=== PATIENT | female | born 1940 | race Caucasian/White ===

== ENCOUNTER → 2017-06-23 | Outpatient (CLI) | payer OTHER, MEDICARE ==
[2017-06-23 09:31] LABS: BASO % 1.1 %; BASO ABS # 0.04 K/uL (0-0.2); COMPLETE YES; EOS % 2.7 %; HEMATOCRIT 40.1 % (37-47); HEMOGLOBIN 13.4 g/dL (12.0-16.0); IG# 0.01 K/uL (0.00-0.02); IG% 0.3 %; LYMPH % 36.9 %; LYMPH ABS # 1.37 K/uL (1.2-3.4); MEAN CELL VOLUME 97.1 fL (80-100); MEAN CORPUSCULAR HEMOGLOBIN 32.4 pg (25-34); MEAN CORPUSCULAR HGB CONC 33.4 g/dl (32-36); MEAN PLATELET VOLUME 10.5 fL (7.4-10.4); MONO ABS # 0.37 K/uL (0.11-0.59); NEUT ABS # 1.82 K/uL (1.4-6.5); PLATELET COUNT 242 K/uL (130-400); RED BLOOD COUNT 4.13 M/uL (4.2-5.4); RED CELL DISTRIBUTION WIDTH CV 13.2 % (11.5-14.5); RED CELL DISTRIBUTION WIDTH SD 46.7 fL (36.4-46.3); WHITE BLOOD COUNT 3.71 K/uL (4.8-10.8)
[2017-06-23 09:48] LABS: GLUCOSE 79 mg/dl (70-99)
[2017-06-23 09:48] LABS: ALBUMIN 3.7 gm/dl (3.4-5.0); ALT/SGPT 37 U/L (12-78); AST/SGOT 36 U/L (15-37); BLOOD UREA NITROGEN 22 mg/dl (7-18); BUN/CREATININE RATIO 25.6 (10-20); CALCIUM 8.8 mg/dl (8.5-10.1); CARBON DIOXIDE 30 mmol/L (21-32); CHLORIDE 103 mmol/L (98-107); CREATININE 0.88 mg/dl (0.60-1.20); EstGFR CKD-E AfrAm 74.5; EstGFR CKD-E NON AfrAm 64.3; POTASSIUM 4.2 mmol/L (3.5-5.1); SODIUM 137 mmol/L (136-145); TOTAL PROTEIN 7.5 gm/dl (6.4-8.2)
[2017-06-23 10:01] LABS: ALKALINE PHOSPHATASE 81 U/L (45-117); CHOLESTEROL 210 mg/dl (0-200); CHOLESTEROL/HDL RATIO 2.7; HDL CHOLESTEROL 77 mg/dl; LDL CHOLESTEROL CALCULATED 120 mg/dl; TRIGLYCERIDES 65 mg/dl (0-150); VERY LOW DENSITY LIPOPROT CALC 13 mg/dl
[2017-06-23 10:16] LABS: VITAMIN B12** 799 pg/mL (211-911)
== END | disposition home or self-care (01) ==
LOC: C.LAB1850 07:59
DX: Z00.00 Encounter for general adult medical examination without abnormal findings (principal); G30.0 Alzheimer's disease with early onset; R35.0 Frequency of micturition; R41.89 Other symptoms and signs involving cognitive functions and awareness

== ENCOUNTER → 2017-07-04 | Outpatient (CLI) | payer OTHER, MEDICARE | END | disposition home or self-care (01) | LOC: C.LABSPEC 16:52 | PROVIDERS: ATTEND Podiatrist Primary Podiatric Medicine | DX: B35.1 Tinea unguium (principal) ==

== ENCOUNTER → 2017-10-19 | Outpatient (CLI) | payer OTHER, MEDICARE ==
[2017-10-19 17:06] LABS: BASO % 0.5 %; BASO ABS # 0.02 K/uL (0-0.2); EOS % 1.2 %; EOS ABS # 0.05 K/uL (0-0.5); HEMATOCRIT 37.9 % (37-47); HEMOGLOBIN 12.6 g/dL (12.0-16.0); IG# 0.01 K/uL (0.00-0.02); LYMPH % 26.6 %; LYMPH ABS # 1.07 K/uL (1.2-3.4); MEAN CELL VOLUME 96.4 fL (80-100); MEAN CORPUSCULAR HEMOGLOBIN 32.1 pg (25-34); MEAN CORPUSCULAR HGB CONC 33.2 g/dl (32-36); MEAN PLATELET VOLUME 10.2 fL (7.4-10.4); MONO ABS # 0.32 K/uL (0.11-0.59); NEUT % 63.5 %; NEUT ABS # 2.55 K/uL (1.4-6.5); PLATELET COUNT 258 K/uL (130-400); RED CELL DISTRIBUTION WIDTH CV 13.6 % (11.5-14.5); RED CELL DISTRIBUTION WIDTH SD 48.6 fL (36.4-46.3); WHITE BLOOD COUNT 4.02 K/uL (4.8-10.8)
[2017-10-19 17:22] LABS: ALBUMIN 3.6 gm/dl (3.4-5.0)
== END | disposition home or self-care (01) ==
LOC: C.LABBFT 13:40
PROVIDERS: ATTEND Podiatrist Primary Podiatric Medicine
DX: M81.0 Age-related osteoporosis without current pathological fracture (principal); Z79.899 Other long term (current) drug therapy

== ENCOUNTER → 2018-01-02 | Outpatient (CLI) | payer OTHER, MEDICARE ==
--- NOTE | 2018-01-02 15:20 | MAMMOGRAPHY REPORT ---
BILATERAL DIGITAL SCREENING MAMMOGRAM TOMOSYNTHESIS WITH CAD: 01/02/2018 CLINICAL HISTORY: Routine screening. Patient has no complaints. TECHNIQUE: The study was acquired using full field digital technology and interpreted from soft copy. Breast tomosynthesis in addition to standard 2D mammography was performed. Current study was also ev aluated with a Computer Aided Detection (CAD) system. COMPARISON: Prior mammograms from [facility] dated 10/16/2008, 01/14/2010, 03/08/2011, , 10/15/2013, 05/18/2015, 12/15/2016. BREAST COMPOSITION: The tissue of both breasts is heterogeneously dense, which may obscure small mass es. FINDINGS: There are mild vascular calcifications in the breasts. No significant interval change comp aring to prior mammograms. No suspicious mass, architectural distortion or cluster of microcalcificat ions is seen. IMPRESSION: ACR BI-RADS CATEGORY 1: NEGATIVE There is no mammographic evidence of malignancy. A 1 year screening mammogram is recommended.( 019) The patient will receive written notification of the results. Some breast cancers are not detected with mammography. A negative mammographic report should not kenton y biopsy if a clinically suggestive mass is present. Rachele Dias M.D. ay/:01/02/2018 12:47:23 Waste Collection Driver: RT Chasity(Sadie)(M), [facility] letter sent: Normal 1/2 BI-RADS Code: ACR BI-RADS Category 1: Negative
== END | disposition home or self-care (01) ==
LOC: C.MAMM 11:27
PROVIDERS: ATTEND Internal Medicine
DX: Z12.31 Encounter for screening mammogram for malignant neoplasm of breast (principal)

== ENCOUNTER 2021-08-31 08:21 | Observation (INO) ==
--- NOTE | 2021-08-02 13:51 | PAT Medication Instructions ---
Medication Instructions Date of Service August 02, 2021 Home Medications Medication Instructions Recorded calcium carbonate 600 mg-vitamin 1 cap PO BID #60 cap 03/22/19 D3 12.5 mcg (500 unit) capsule (Calcium 600 with Vitamin D3) triamcinolone acetonide 0.1 % 1 applic TOPICAL BID PRN #15 g 05/08/20 topical ointment sertraline 100 mg tablet 100 mg PO QAM #90 tab 01/19/21 calcium carbonate 600 mg-vitamin D3 12.5 mcg (500 unit) capsule (Calcium 600 with Vitamin D3) 1 cap PO BID glucosamine 500 xw-vsytpsljv-jedhwjec comp 400 mg-D3 667 unit-C-Mn cap 1 cap PO QPM multivitamin 1 tab PO QAM omega-3 fatty acids 1,000 mg capsule (Fish Oil Concentrate) 1,000 mg PO QAM vitamin E 200 unit capsule 200 units PO QAM triamcinolone acetonide 0.1 % topical ointment 1 applic TOPICAL BID PRN solifenacin 10 mg tablet (Vesicare) 10 mg PO QPM sertraline 100 mg tablet 100 mg PO QAM cholecalciferol (vitamin D3) 25 mcg (1,000 unit) capsule 25 mcg PO QPM ibuprofen 200 mg capsule 200 - 400 mg PO Q6H PRN omeprazole 20 mg tablet,delayed release 20 mg PO QAM ASK your surgeon for instructions ibuprofen 200 mg capsule 200 - 400 mg PO Q6H PRN STOP taking 2 weeks before surgery glucosamine 500 ax-vywpfiezk-jfecutit comp 400 mg-D3 667 unit-C-Mn cap 1 cap PO QPM omega-3 fatty acids 1,000 mg capsule (Fish Oil Concentrate) 1,000 mg PO QAM vitamin E 200 unit capsule 200 units PO QAM STOP taking 24 hours before surgery triamcinolone acetonide 0.1 % topical ointment 1 applic TOPICAL BID PRN DO NOT take the morning of surgery calcium carbonate 600 mg-vitamin D3 12.5 mcg (500 unit) capsule (Calcium 600 with Vitamin D3) 1 cap PO BID multivitamin 1 tab PO QAM Take morning of surgery With a small sip of water, OTHERWISE NOTHING TO EAT OR DRINK AFTER MIDNIGHT: sertraline 100 mg tablet 100 mg PO QAM omeprazole 20 mg tablet,delayed release 20 mg PO QAM Take evening before surgery calcium carbonate 600 mg-vitamin D3 12.5 mcg (500 unit) capsule (Calcium 600 with Vitamin D3) 1 cap PO BID solifenacin 10 mg tablet (Vesicare) 10 mg PO QPM cholecalciferol (vitamin D3) 25 mcg (1,000 unit) capsule 25 mcg PO QPM Other Notes If you have any questions please call us at [phone] or [phone] or [phone] or [phone]
--- NOTE | 2021-08-04 09:54 | Anesthesiology Consultation ---
Date of Service August 04, 2021 Assessment & Plan (1) Encounter for pre-operative examination: - septal infarct on EKG, pt denies any cardiac history including known history of IA. Case discussed with Dr. Powell who advised cardiology pre-op evaluation. Form completed, awaiting cardiology pre-op evaluation and clearance. - Outpatient joint pathway: Patient is listed as outpatient joint. She expresses concern with going home same day and would prefer to stay overnight. I advised I will relay this to the surgeon's office. She states had originally requested outpatient joint due to concern for pet care and states will now be boarding dog and having someone care for her cat. Joycelyn at surgeon's office advised of plan to stay overnight and states will change booking. Additional considerations include patient age, dementia and residing in independent living with reported plan to hire someone to stay her from wellness committee which would need further reviewed with an anesthesiologist if patient preference were to change. - vascular dementia: will attempt to obtain most recent [facility] neuro note. Pt expressed understanding there can be associated worsening of dementia, expresses has remained stable through previous procedures. - NPO: She inquired if should consume a particularly large meal evening before surgery. I advised we do not advise this specifically and cautioned her on this given potential to exacerbate GERD and potential complications of acute GERD exacerbation in setting of planned surgery and aspiration concern. She verbalized understanding and denied additional questions or concerns, states will eat as usual. - COVID screening: Per assessment on 08/04/2021: Travel screen negative, no known COVID-19 positive contacts or current COVID-19 related symptoms in past 2 weeks. Patient vaccinated. Surgeon arranging preop COVID testing, scheduled 08/27/2021. Awaiting results. Chart Review Chart Review: Pending: Refer to Additional Notes / Consult section and Patient seen in Pre Admission Testing Teaching & Discussion Pre-Anesthesia Teaching/Discussion Notes: Instructed NPO after midnight before surgery, except medications with 15 cc of water. Medication instructions provided according to the PAT guidelines. History Surgery Operation Date: 08/31/21 08:55 Proposed Procedures p Right Anterior Total Hip Arthroplasty - Juno Willett, Height/Weight Height: 5 ft 1.25 in Weight: 47.6 kg Allergies Allergy/AdvReac Type Severity Reaction Status Date / Time No Known Allergies Allergy Verified 08/02/21 09:09 Medications Home Medications Medication Instructions Recorded Confirmed Last Taken calcium carbonate 600 mg-vitamin 1 cap PO BID #60 cap 03/22/19 08/02/21 01/03/21 16:00 D3 12.5 mcg (500 unit) capsule (Calcium 600 with Vitamin D3) glucosamine 500 1 cap PO QPM 04/16/19 08/02/21 01/03/21 16:00 nr-bxnpxqqvq-fmzgxree comp 400 mg-D3 667 unit-C-Mn cap multivitamin 1 tab PO QAM 04/16/19 08/02/21 01/03/21 08:00 omega-3 fatty acids 1,000 mg 1,000 mg PO QAM 04/16/19 08/02/21 01/03/21 16:00 capsule (Fish Oil Concentrate) vitamin E 200 unit capsule 200 units PO QAM 04/16/19 08/02/21 01/03/21 08:00 triamcinolone acetonide 0.1 % 1 applic TOPICAL BID PRN #15 g 05/08/20 08/02/21 Unknown topical ointment solifenacin 10 mg tablet (Vesicare) 10 mg PO QPM 12/16/20 08/02/21 01/03/21 16:00 sertraline 100 mg tablet 100 mg PO QAM #90 tab 01/19/21 08/02/21 Unknown cholecalciferol (vitamin D3) 25 25 mcg PO QPM 05/13/21 08/02/21 Unknown mcg (1,000 unit) capsule ibuprofen 200 mg capsule 200 - 400 mg PO Q6H PRN 08/02/21 08/02/21 Unknown omeprazole 20 mg tablet,delayed 20 mg PO QAM 08/02/21 08/02/21 Unknown release Past Medical History Medical History (Updated 08/04/21 @ 11:46 by Chloé Wilburn PA-C) Anxiety Asthma mild-NO INHALERS Cardiac murmur "BENIGN"-PER PT-NO CARDIOLOGY-last echo > 15 yrs ago per pt-no available report Depression Gastritis HX ACID REFLUX, s/p dilation-UNDER CONTROL Osteoarthritis of left hip Osteoarthritis of right hip Osteopenia Overactive bladder Vascular dementia follows with [facility] Patient denies h/o stroke, seizures, heart attack, heart failure, DM, HTN, blood clots or blood transfusions. Exercise / Class Metabolic Activity II 4-5 Yardwork/Stairs/Walk up hill (denies CP or SOB with 1 FOS when occ does stairs, more often remains on flat surfaces due to orthopedic limitations/first floor residence) Past Family History Family History Father Prostate cancer Myocardial infarction Grandmother (Paternal) Family history of diabetes mellitus Denies family history of Ovarian cancer Breast cancer Colorectal cancer Past Surgical History Surgical History (Updated 08/04/21 @ 10:31 by Chloé Wilburn PA-C) H/O laminectomy anterior, C4-C6 History of cataract surgery R/L History of colonoscopy History of esophagogastroduodenoscopy (EGD) with dilation History of tonsillectomy Past Anesthesia History No Hx of Anesthesia Complications and Other (mother suspected to have worsened dementia after surgery) History of PONV No Hx of PONV and No Hx of Motion Sickness Social History Smoking Status: Former smoker tobacco type: cigarettes Do You Dip or Chew Tobacco: No Smoking End Date: QUIT AGE 25 Hx Alcohol Use: Yes alcohol intake frequency: holidays/special occasions only Hx Substance Use: No substance use type: does not use Review of Systems Patient denies chest pain, shortness of breath, dyspnea on exertion, snoring, witnessed apneas, fever, chills, cough, wheezing, or palpitations. Physical Exam Vital Signs Vitals BP 138/80 P 62 TEMP 98.8 SP02 96% on RA RESP 17 Physical Full cervical extension range of motion without pain Full TMJ range of motion TMD 3 finger breaths Mallampati Score 2 Dentition: intact, multiple caps/crowns throughout-none in front per pt; denies missing, loose or chipped teeth, implants or bridges Lungs: normal respiratory effort. Clear throughout to auscultation, no adventitious breath sounds Cardiac: regular rate and rhythm, no murmurs noted Carotid arteries: negative bruit bilat Extremities: no distal extremity edema Lab Results Anesthesia Preop Results Results Anesthesia Widget: WBC 4.63 K/uL (4.8-10.8) L 08/04/21 Hgb 13.2 g/dL (12.0-16.0) 08/04/21 Hct 39.4 % (37-47) 08/04/21 Plt 263 K/uL (130-400) 08/04/21 Na 138 mmol/L (136-145) 08/04/21 K 4.3 mmol/L (3.5-5.1) 08/04/21 Cl 104 mmol/L (98-107) 08/04/21 CO2 28 mmol/L (21-32) 08/04/21 BUN 19 mg/dl (6-23) 08/04/21 Creat 0.93 mg/dl (0.6-1.2) 08/04/21 Glucose Level 82 mg/dl (70-99(Fasting)) 08/04/21 PT 10.9 Seconds (9.0-12.0) 08/04/21 PTT 25.6 Seconds (21.0-31.0) 08/04/21 INR 1.0 (0.9-1.1) 08/04/21 Blood Type B Positive 08/04/21 Antibody Screen NEGATIVE 08/04/21 Testing Electrocardiogram Date: 08/04/21 NSR, rate 61 bpm Septal infarct Chest X-Ray Date: 08/04/21 FINDINGS: No lines and tubes are seen. The cardiomediastinal silhouette is normal. No airspace disease seen. Interstitial thickening is seen. No evidence of pleural effusion or pneumothorax. IMPRESSION: No acute chest disease.
--- NOTE | 2021-08-26 14:03 | History & Physical Report ---
Date of Service August 26, 2021 Assessment & Plan (1) Osteoarthritis of right hip: We will proceed with a right anterior total arthroplasty. Postoperatively she will be started on aspirin for DVT prophylaxis and kept overnight in the hospital for postoperative medical management. She plans to use energy physical therapy upon discharge. History of Present Illness Chief Complaint: Osteoarthritis of the right hip. Primary Care Provider: Majo Guerrero MD Marlen is a pleasant 81-year-old female who is been dealing with chronic worsening right hip and groin pain. X-rays and clinical examination have been diagnostic for advanced osteoarthritis of the right hip. After failing conservative treatment, she has elected to proceed with a right anterior total hip arthroplasty. Allergies Allergy/AdvReac Type Severity Reaction Status Date / Time No Known Allergies Allergy Verified 08/25/21 08:46 Home Medications Medication Instructions Recorded Confirmed Type calcium carbonate 600 mg-vitamin 1 cap PO BID #60 cap 03/22/19 08/25/21 Rx D3 12.5 mcg (500 unit) capsule (Calcium 600 with Vitamin D3) glucosamine 500 1 cap PO QPM 04/16/19 08/25/21 History oi-qninicibn-wyytvjvg comp 400 mg-D3 667 unit-C-Mn cap multivitamin 1 tab PO QAM 04/16/19 08/25/21 History omega-3 fatty acids 1,000 mg 1,000 mg PO QAM 04/16/19 08/25/21 History capsule (Fish Oil Concentrate) vitamin E 200 unit capsule 200 units PO QAM 04/16/19 08/25/21 History triamcinolone acetonide 0.1 % 1 applic TOPICAL BID PRN #15 g 05/08/20 08/25/21 Rx topical ointment solifenacin 10 mg tablet (Vesicare) 10 mg PO QPM 12/16/20 08/25/21 History sertraline 100 mg tablet 100 mg PO QAM #90 tab 01/19/21 08/25/21 Rx cholecalciferol (vitamin D3) 25 25 mcg PO QPM 05/13/21 08/25/21 History mcg (1,000 unit) capsule ibuprofen 200 mg capsule 200 - 400 mg PO Q6H PRN 08/02/21 08/25/21 History omeprazole 20 mg tablet,delayed 20 mg PO QAM 08/02/21 08/25/21 History release Past Med/Surg History Medical History Anxiety Asthma mild-NO INHALERS Cardiac murmur "BENIGN"-PER PT-NO CARDIOLOGY-last echo > 15 yrs ago per pt-no available report Depression Gastritis HX ACID REFLUX, s/p dilation-UNDER CONTROL Osteoarthritis of left hip Osteoarthritis of right hip Osteopenia Overactive bladder Vascular dementia follows with [facility] Surgical History H/O laminectomy anterior, C4-C6 History of cataract surgery R/L History of colonoscopy History of esophagogastroduodenoscopy (EGD) with dilation History of tonsillectomy Family History Father Prostate cancer Myocardial infarction Grandmother (Paternal) Family history of diabetes mellitus Denies family history of Ovarian cancer Breast cancer Colorectal cancer Social History Smoking Status: Never smoker Age Started Using Tobacco: 20; Age Quit Using Tobacco: 25; Years Smoked: 7; Second Hand Exposure: Yes (FATHER SMOKED); Hx Alcohol Use: Yes Hx Substance Use: No Preferred Language: Frisian Communication Ability: Effective Hearing Ability: Use of Hearing Aid Inspector Scales Required: No Beliefs That Will Affect Care: None marital status: / Current Living Situation: Alone Current Living Situation Comment: lives at the [facility] current occupational status: retired Feels Safe at Home: Yes Childhood Exposure to Second-Hand Smoke: Yes caffeine: Yes (Hot tea) Dental Care, Regularly: Yes Physical Activity Frequency: Daily Seatbelt Use: always Sunscreen Use: Yes Assistive Devices: Cane, Glasses and Hearing Aid - Bilateral Review of Systems All systems reviewed & are unremarkable except as noted in HPI & below. Physical Exam On physical examination of the right hip, she ambulates with a cane. She has decreased range of motion and pain with forced internal and external rotation. Constitutional WD/WN, vitals as above Eyes PERRL, conjunctivae normal, anicteric sclerae ENMT external ear and nose normal, oropharynx normal Neck trachea midline, no thyromegaly Respiratory normal respiratory effort Cardiovascular RRR, no murmur, no edema Gastrointestinal (Abdomen) normal bowel sounds, soft, nontender, no hepatosplenomegaly Psychiatric A+Ox3, euthymic affect Results & Data Results & Data Laboratory Results . Diagnostic Findings X-rays of the right hip show advanced osteoarthritis with joint space narrowing, osteophyte formation, and sjmq-hh-uvbp articulation. PG Care Time/CCT Total # of Minutes Spent Total Time Spent with Patient: Total time spent is greater than 50% in coordination of care (as documented) at patient's floor/unit and/or counseling patient: Coding Level of Care Code None Diagnoses Osteoarthritis of right hip M16.11
--- NOTE | 2021-08-31 08:16 | History & Physical Bridge Note ---
Date of Service August 31, 2021 History & Physical Bridge Note I have examined the patient, reviewed the History & Physical and in the interval since the performance of the History & Physical I have noted the following changes of clinical significance: no changes noted
[~2021-08-31 08:21] MED LIST: ACETAMINOPHEN 500 MG TAB PO SCH; BUPIVACAINE 0.5 % 5 MG/1 ML PF 10ML VIAL ONE; FAMOTIDINE 20 MG TAB PO SCH; GABAPENTIN 300 MG CAP PO SCH; Ketorolac (*for OR use only*) 30 MG, dexAMETHasone 4 MG, KETAMINE HCL (**OR use only) 1... INFIL SCH; LR 500ML BOLUS, THEN 15ML/HR IV SCH; LR 60ML/HR IV SCH; TRANEXAMIC ACID 1,000 MG **IV Intra-op IV SCH; TRANEXAMIC ACID 1,000 MG **IV Pre-op IV SCH; ceFAZolin 1000MG 1,000 MG/7.5 ML SYR IV SCH; dexAMETHasone 4 MG TAB PO SCH
[2021-08-31] MEDS ORDERED: ePHEDrine sulfate 50 MG/ML AMP IV PRN (10:17)
[2021-08-31] MEDS ORDERED: ATROPINE SULFATE 0.1 MG/ML 10ML SYR IV PRN (10:17)
[2021-08-31] MEDS ORDERED: ONDANSETRON INJ 2 MG/ML 2 ML VIAL IV PRN ×2 (10:17→13:51)
[2021-08-31] MEDS ORDERED: fentaNYL citrate 100 MCG/2 ML VIAL IV PRN (10:17)
[2021-08-31] MEDS ORDERED: PROPOFOL IV EMULSION 10 MG/ML 20 ML VIAL IV ONE (10:19)
[2021-08-31] MEDS ORDERED: LIDOCAINE 2% 2 ML VIAL/AMP(20MG/ML) INFIL ONE (10:19)
[2021-08-31] MEDS ORDERED: MIDAZOLAM HCL 1 MG/ML 2ML VIAL ONE (10:29)
[2021-08-31] MEDS ORDERED: ORTHO JOINT ANESTHETIC ONE (10:29)
--- NOTE | 2021-08-31 11:49 | Operative Report ---
PG Post Operative Report Pre & Post Diagnosis Operation Date: 08/31/21 10:40 Pre-Op Diagnosis: Right Hip Osteoarthritis Post-Op Diagnosis: Right Hip Osteoarthritis I identified the patient and participated in the time-out.: Yes Procedure Operation Date: 08/31/21 10:40 Actual Procedures p Right Anterior Total Hip Arthroplasty(Right) - Juno Willett DO Surgeon Juno Willett, Outside Deliverer Juno Bajwa PAC Estimated Blood Loss 200 Findings Consistent with Post-Op Diagnosis Specimens Right femoral head Complications none Disposition Disposition: Recovery Room Indications Marlen is a pleasant 81-year-old female who is been doing with chronic increasing right hip and groin pain. X-rays and clinical examination are diagnostic for advanced arthritis of the right hip. After failing conservative treatment, she elected proceed with a right anterior total hip arthroplasty. Description of Procedure Implants used I used a ZimmerBiomet total hip arthroplasty system with a size 2 standard offset Avenir Complete stem, a 50 mm G7 cup with a 25mm screw, an E1 polyethylene liner, a 36 mm ceramic head with a 0 neck. Marlen arrived at the hospital for the above procedure. She was seen in the preoperative holding area and the operative extremity was identified and signed. She was given a spinal anesthetic, a preoperative antibiotic, and TXA. She was then taken back to the operating room and laid on the table in the supine position. She was given basic sedation. The operative leg was secured to a Puristst leg positioner. The hip was then prepped and draped in sterile fashion. A timeout was done and the patient and the operative extremity was properly identified. An anterior approach was used. Dissection was taken down through the fascia and the tensor muscle belly was retracted laterally and the rectus was retracted medially. The circumflex vessels were identified and ligated. The capsule was then incised and tagged for later repair. The femoral neck was then cut and the femoral head was removed. The acetabulum was exposed. Time was spent doing a complete circumferential labral release. Sequential reaming of the acetabulum up to a size 49 reamer was done. Final reamings were done under fluoroscopy to ensure appropriate version. A Biomet 50mm G7 cup was then impacted into place. A single 25 mm screw was placed. The E1 polyethylene liner was then snapped into place. Surrounding soft tissues were then injected with 100 cc of an orthopedic pain control cocktail. The proximal femur was then exposed. Sequential broaching up to a size 2 broach was done. Off that broach a size 36 head with a 0 neck was trialed. The hip was reduced and fluoroscopic images showed anatomic alignment of the implants in acceptable length. The broach was removed. The final size 2 standard offset 36 Avenir Complete stem was then impacted into place. A ceramic mm head with a 0 neck was then impacted onto the stem and the hip was reduced. Final fluoroscopic images showed anatomic alignment of the hip. The capsule was then closed with #1 Vicryl suture. A dilute betadyne lavage was then done for 3 minutes. The joint was then irrigated with normal saline solution. The fascia was closed with #1 PDS suture. Skin was closed with 2-0 Vicryl, vince, and a Silverlon dressing. She was then transferred to a hospital bed and taken to the post anesthesia care unit in stable condition. She tolerated the procedure well. Juno Bajwa PA-C, was present for the entire procedure. He was critical for patient positioning, prepping, draping, retraction exposure, wound closure and application of sterile dressing. I attest to the content of the Intraoperative Record and any orders documented therein. Any exceptions are noted below.
--- NOTE | 2021-08-31 12:39 | Fluoroscopy Report ---
FL hip RT 1V HISTORY: 81 years-old Female RT ANTERIOR TOTAL HIP ARTHROPLASTY COMPARISON: Hip radiographs 08/11/2018 TECHNIQUE: One spot fluoroscopic images of the right hip was obtained utilizing 18.8 seconds of fluor oscopy time FINDINGS: Right hip total joint arthroplasty demonstrates satisfactory alignment. Expected postoperative soft t issue swelling with deep tissue air. No acute fracture or unexpected opaque foreign body. IMPRESSION: Fluoroscopic assistance as above ACT 112: Negative or not required by law. The above report was generated using voice recognition software. It may contain grammatical, syntax o r spelling errors. Electronically signed by: Liam Chavez M.D. 08/31/2021 12:37 PM
--- NOTE | 2021-08-31 13:07 | Anesthesiology Progress Note ---
Date of Service August 31, 2021 Anesthesia Post Procedure Vital Signs Vital Signs: Temp Pulse Pulse Resp BP Pulse Ox 08/31/21 13:00 59 L 21 150/81 H 100 08/31/21 12:50 57 L 22 149/75 H 98 08/31/21 12:40 57 L 15 141/76 H 99 08/31/21 12:30 62 19 105/72 100 08/31/21 12:20 55 L 22 148/79 H 100 08/31/21 12:10 36.4 C L 81 13 151/75 H 97 08/31/21 08:56 36.9 C 69 18 151/86 H 99 Transfer of Care Handoff Completed per policy Notes Mental Status: alert / awake / arousable Patient Amnestic to Procedure: Yes Nausea / Vomiting: adequately controlled Pain: adequately controlled Airway Patency, RR, SpO2: stable & adequate BP & HR: stable & adequate Hydration State: stable & adequate Neuraxial Anesthesia: was administered and sensory block is resolving Anesthetic Complications: no major complications apparent
--- NOTE | 2021-08-31 13:11 | XRay Report ---
XR hip 1V RT w pelvis CLINICAL HISTORY: IN PACU - A/P PELVIS and LATERAL HIP TECHNIQUE: 2 views of the right hip and single frontal view of the pelvis were obtained. Comparison: None available at the time of this dictation. FINDINGS: Patient is status post total hip arthroplasty with expected postsurgical changes including soft tissu e swelling, subcutaneous emphysema, and surgical staple placement. No periarticular lucency or hardwa re fracture is seen. Degenerative changes are seen in the left hip. No soft tissue abnormality is se en. IMPRESSION: Expected postoperative appearance status post placement of total hip arthroplasty. ACT 112: Negative or not required by law. Electronically signed by: Everardo Bray M.D. 08/31/2021 1:09 PM
[2021-08-31] MEDS ORDERED: KETOROLAC TROMETHAMINE 15 MG/ML VIAL IV SCH (13:51)
[2021-08-31] MEDS ORDERED: MAGNESIUM HYDROXIDE SUSP 30 ML UDC PO PRN (13:51)
[2021-08-31] MEDS ORDERED: NALOXONE HCL 0.4 MG/1 ML VIAL/CARP IV PRN (13:51)
[2021-08-31] MEDS ORDERED: oxyCODONE HCL IR 5 MG TAB (IMMEDIATE RELEASE) PO PRN (13:51)
[2021-08-31] MEDS ORDERED: SODIUM CHLORIDE 0.9% 1000ML 1,000 ML IV SCH (13:51)
[2021-08-31] MEDS ORDERED: HYDROmorphone INJ 0.5 MG/0.5 ML SYR IV PRN (13:51)
[2021-08-31] MEDS ORDERED: METOCLOPRAMIDE HCL INJ 5 MG/ML 2 ML VIAL IV PRN (13:51)
[2021-08-31] MEDS ORDERED: bisacodyL 10 MG SUPP PR PRN (13:51)
[2021-08-31] MEDS: ACETAMINOPHEN 500 MG TAB PO SCH ×2 (14:54→20:23)
[2021-08-31] MEDS ORDERED: VESICARE: ORDER AWAITING ACTION SCH (16:00)
[2021-08-31] MEDS: ceFAZolin 2000MG 2,000 MG/15 ML SYR IV SCH (17:21)
[2021-08-31] MEDS ORDERED: VESICARE 10 MG PO SCH (19:15)
[2021-08-31] MEDS: DOCUSATE SODIUM 100 MG CAP PO SCH (20:21)
[2021-08-31] MEDS: ASPIRIN 81 MG ECTAB PO SCH (20:21)
[2021-08-31] MEDS: KETOROLAC TROMETHAMINE 15 MG/ML VIAL IV SCH (20:23)
[2021-08-31] MEDS ORDERED: SENNA 8.6 MG TAB PO SCH (21:00)
[2021-09-01] MEDS: KETOROLAC TROMETHAMINE 15 MG/ML VIAL IV SCH ×2 (01:59→07:29)
[2021-09-01] MEDS: ceFAZolin 2000MG 2,000 MG/15 ML SYR IV SCH (01:59)
[2021-09-01] MEDS: ACETAMINOPHEN 500 MG TAB PO SCH (05:15)
--- NOTE | 2021-09-01 06:50 | Orthopedic Progress Note ---
Date of Service September 01, 2021 Assessment & Plan (1) Status post right hip replacement: Overall she is doing very well. She is having much pain in the right hip. She will be seen by physical therapy today for ambulation and range of motion exercises. She is on aspirin for DVT prophylaxis. She can be discharged home later today. She will follow-up with orthopedics in 2 weeks. Matthew Gee was seen and examined at bedside this morning. Overall she is doing very well. She denies any pain in the right hip. She has been up and ambulating to the bathroom. She has no complaints. Review of Systems All systems reviewed & are unremarkable except as noted in HPI & below. Physical Exam On physical examination of the right hip, the dressing is clean and dry. Her leg lengths are equal. She is neurovascular intact.. Results & Data Results & Data Laboratory Results . Diagnostic Findings Postoperative x-rays of the right hip show the prosthesis to be in anatomic alignment without any evidence of fracture, desiccation, or loosening. PG Care Time/CCT Total # of Minutes Spent Total Time Spent with Patient: Total time spent is greater than 50% in coordination of care (as documented) at patient's floor/unit and/or counseling patient: Coding Level of Care Code 88250 Post Operative Follow-Up Diagnoses Status post right hip replacement Z96.641
--- NOTE | 2021-09-01 06:51 | Discharge Summary ---
Date of Service September 01, 2021 Admission HPI (Per Admitting) Marlen is a pleasant 81-year-old female who is been dealing with chronic worsening right hip and groin pain. X-rays and clinical examination have been diagnostic for advanced osteoarthritis of the right hip. After failing conservative treatment, she has elected to proceed with a right anterior total hip arthroplasty. Admission Exam (Per Admitting) On physical examination of the right hip, she ambulates with a cane. She has decreased range of motion and pain with forced internal and external rotation. Principal Diagnosis Same as "Discharge Diagnosis" noted below under Discharge Instructions. Discharge Exam On physical examination of the right hip, the dressing is clean and dry. Her leg lengths are equal. She is neurovascular intact.. Discharge Data Procedures Performed Operation Date: 08/31/21 10:40 Actual Procedures p Right Anterior Total Hip Arthroplasty(Right) - Juno Willett DO Ordered Studies 08/31/21 10:40 FL hip RT 1V Routine Hospital Course (1) Status post right hip replacement: On August 31, 2021 Luna arrived at [facility] and underwent a right hip replacement without complication. She had a spinal anesthetic. Postoperatively she was started on aspirin for DVT prophylaxis and transferred to the general orthopedic floors. Her hospital course was uneventful. On postop day #1 her vital signs were stable and her pain was well controlled. She was able to participate well with physical therapy doing ambulation and range of motion exercises. She was then discharged home. She will follow with orthopedics in 2 weeks. PG Care Time/CCT Total # of Minutes Spent Total Time Spent with Patient: Total time spent is greater than 50% in coordination of care (as documented) at patient's floor/unit and/or counseling patient: Discharge Plan Discharge Items Patient Disposition: Home - Home Health Services Reason For Visit: DJD Right Hip Discharge Diagnosis: Right hip replacement Activity: Per Instructions section Non-emergency contact: Surgeon Call non-emergency contact if: your wound has increased redness and your wound has increased drainage Follow-up/Referrals: Majo Guerrero MD [Primary Care Provider] - Diet: Regular Addtl Attending Provider Instructions: Activity and Therapy Recommendations: * If you are using [facility] then therapy will be provided at your home until they feel you have accomplished all of your goals. * If you are using [facility] then Physical Therapy will be provided until they feel you are ready to start Outpatient Physical Therapy. * If you are not using home therapy then Outpatient Physical Therapy should start about 3-5 days from your day of surgery. Therapy will last about 6-10 weeks * You were shown a series of exercises in the hospital. Do these exercises three times each day including the exercises you were shown in physical therapy. * Get up and walk several times each day.~ For the first four weeks, try not to stand or walk for more than one hour at a time. If you do stand or walk for more than one hour, you will not hurt anything, but your leg will likely swell.~~ * As you feel comfortable, you may change from the walker or crutches to a cane and~then to independent walking. Medications: * Narcotic You will likely be sent home from the hospital with a prescription for the narcotic pain medication that worked best throughout your stay. * Aspirin Most patients will be required to take Aspirin 81mg twice a day for 6 weeks after surgery. This is obtained [id number] and a prescription is not necessary. * Other medications may be prescribed for specific circumstances. If you have any questions, please call the office at . * Resume previous home medications unless otherwise instructed TEDs/Elastic Stockings: The white elastic stockings help limit swelling and prevent blood clots from forming in your legs. The more you wear them, the more they work. Wear them for six weeks. Dressing Care: Leave the Silverlon dressing in place for 7 days. After 7 days you may remove the dressing. If the incision is not draining then you may leave the vince open to air. If there is a little bit of drainage or if the vince are getting stuck on your clothing then cover the incision with a dry dressing. The vince will be removed at your 2 week follow-up appointment. Showering: You may shower with the Silverlon dressing in place. Do not let the shower spray hit the dressing directly. Pat the Silverlon dressing dry. If the dressing becomes wet underneath, then simply remove the dressing. Keep t he incision dry until you are 7 days out from the day of surgery. After 7 days you may remove the Silverlon dressing and shower with the vince exposed. Let soapy water run over the vince and pat them dry. Do not scrub or soak the incision. Things To Watch For: * Drainage from the incision site that occurs more than one week after your surgery. * Increased redness at the incision site. * Fever above 102 degrees Fahrenheit. * Unusual chest pain or shortness of breath. * Call [facility] at with any of the above problems Follow-Up Visit: Follow-up with Dr. Willett's PA (Juno Bajwa) 2-3 weeks after your day of surgery. He will remove your vince and answer any questions. If you have any additional questions or concerns, Dr Willett is usually in the office at the same time and will be available An appointment was probably scheduled when you signed-up for surgery in the office. If you have any questions call Office Instructions: More detailed instructions as well as Frequently Asked Questions were provided in a folder by our office when you signed-up for surgery. Please review these instructions when you get home. If you have any further questions or concerns, please feel free to call the office at [phone] Pending Studies at Discharge: No Stand-Alone Forms: My [facility] [employer], Smoking Cessation Medications and DC Order Prescriptions: New tramadol 50 mg tablet 50 mg PO Q6H PRN (Reason: pain) Qty: 30 RF: 0 aspirin 81 mg Tablet,Delayed Release (Dr/Ec) 81 mg PO BID 42 Days Qty: 0 RF: 0 Continued sertraline 100 mg tablet 100 mg PO QAM Qty: 90 RF: 3 cholecalciferol (vitamin D3) 25 mcg (1,000 unit) capsule 25 mcg PO QPM RF: 0 triamcinolone acetonide 0.1 % ointment 1 applic topical BID PRN (Reason: itching) Qty: 15 RF: 1 calcium carbonate-vitamin D3 [Calcium 600 with Vitamin D3] 600 mg(1,500mg) - 500 unit capsule 1 cap PO BID Qty: 60 RF: 0 vitamin E 200 unit capsule 200 units PO QAM RF: 0 vxke-olzxue-uwrqndpo-D3-C-Mn 500-400-667 mg-mg-unit capsule 1 cap PO QPM RF: 0 omega-3 fatty acids [Fish Oil Concentrate] 1,000 mg capsule 1,000 mg PO QAM RF: 0 multivitamin tablet 1 tab PO QAM RF: 0 omeprazole 20 mg tablet,delayed release (DR/EC) 20 mg PO QAM RF: 0 ibuprofen 200 mg Capsule 200 - 400 mg PO Q6H PRN (Reason: Pain) RF: 0 solifenacin [Vesicare] 10 mg tablet 10 mg PO QPM RF: 0 Discharge Orders: Discharge Order (Routine); Ordered 09/01/21 Ordered By: Juno Willett Admission Data Admit Date/Time: 08/31/21 12:10 Attending Provider: Juno Willett Admit Provider: Juno Willett Primary Care Provider: Majo Guerrero
[2021-09-01] MEDS: DOCUSATE SODIUM 100 MG CAP PO SCH (07:30)
[2021-09-01] MEDS: ASPIRIN 81 MG ECTAB PO SCH (07:30)
[2021-09-01] MEDS ORDERED: dexAMETHasone 4 MG TAB PO SCH (08:00)
[2021-09-01] MEDS ORDERED: MULTIVITAMIN TAB PO SCH (09:00)
[2021-09-01] MEDS ORDERED: SERTRALINE HCL 100 MG TABLET PO SCH (09:00)
[2021-09-01] MEDS ORDERED: PANTOprazole 40 MG TAB PO SCH (09:00)
== END 2021-09-01 11:20 | disposition home or self-care (01) ==
LOC: ASU 08:21 → PACUINP 08:21 → 3W 14:43
DX: M16.11 Unilateral primary osteoarthritis, right hip

== ENCOUNTER 2022-01-10 06:41 | Observation (INO) ==
--- NOTE | 2022-01-06 14:28 | Anesthesiology Consultation ---
Date of Service January 06, 2022 Assessment & Plan (1) Encounter for pre-operative examination: Chart Review Chart Review: Acceptable Risk for Surgery (pending preop Covid testing results ) and Patient NOT seen in Pre Admission Testing -Discussed with Dr. Caro- pt recently had right FRANCESCO without any significant anesthesia issues. Due to close proximity, patient continues to be asymptomatic from CV standpoint and PCP not feeling beta neda is absolutely necessary at this time- pt can proceed as scheduled Per nursing assessment 01/06/2022, patient denies any recent travel. No known COVID infection in the past 90 days. Patient is fully vaccinated for COVID. No known Covid positive exposures or Covid related symptoms. Preop Covid testing scheduled 01/06/22= will await results Right Anterior FRANCESCO 10/31/21= Done under [facility] at L2-3 Per PCP phone note 09/24/21= Pt has since underwent FRANCESCO- feels recovery is going generally well. Minimal pain. Prior to surgery she was referred to cardio for abnormal EKG. ECHO showed mild LVOT. Beta neda was suggested but pt has reservations due to potential of side effects. Pt has no CV symptoms at this time- not sure if beta neda treatment for incidental finding outweighs risk of side effects. We can re-evaluate this with this time- pt agreeable with plan Pt seen by cardio 08/25/21= seen for preop cardiovascular examination. Patient is currently stable and asymptomatic from a cardiovascular standpoint with no anginal symptoms occurring at >4 METS of activity. No evidence of CHF. Does have murmur on exam today and has not had recent echo. Preop EKG showed possible septal infarct. Will obtain echocardiogram prior to surgery. Addendum to cardio note 08/27/21= recent echocardiogram reviewed. Recommended to stay well-hydrated given the SARAY and LVOT obstruction. Beta-neda also indicated to slow down her heart rate. This can be instituted after surgery. It was discussed follow-up in the cardiology's office can be arranged in the future start beta-neda and then continue follow-up in cardiology departmentpatient would prefer to see her PCP and discuss beta-neda therapy first. In regards to her upcoming surgery, she is at acceptable risk to proceed with surgery from a cardiovascular standpoint. Avoid recommending hypotension hypovolemia throughout the perioperative period given her SARAY/LVOT obstruction. History Surgery Operation Date: 01/10/22 07:00 Proposed Procedures p Left Anterior Total Hip Arthroplasty - Juno Willett, Height/Weight Height: 5 ft 1.25 in Weight: 49.442 kg Allergies Allergy/AdvReac Type Severity Reaction Status Date / Time No Known Allergies Allergy Verified 01/06/22 13:32 Medications Home Medications Medication Instructions Recorded Confirmed Last Taken calcium carbonate 600 mg-vitamin 1 cap PO BID #60 caps 03/22/19 01/06/22 08/23/21 16:00 D3 12.5 mcg (500 unit) capsule (Calcium 600 with Vitamin D3) glucosamine 500 1 cap PO QPM 04/16/19 01/06/22 08/23/21 16:00 el-oavmltbyd-vgbjsddh comp 400 mg-D3 667 unit-C-Mn cap multivitamin 1 tab PO QAM 04/16/19 01/06/22 08/23/21 08:00 omega-3 fatty acids 1,000 mg 1,000 mg PO QAM 04/16/19 01/06/22 08/23/21 08:00 capsule (Fish Oil Concentrate) vitamin E 200 unit capsule 200 units PO QAM 04/16/19 01/06/22 08/23/21 08:00 triamcinolone acetonide 0.1 % 1 applic topical BID PRN itching 05/08/20 01/06/22 Unknown topical ointment #15 grams sertraline 100 mg tablet 100 mg PO QAM #90 tabs 01/19/21 01/06/22 08/31/21 07:00 cholecalciferol (vitamin D3) 25 25 mcg PO QPM 05/13/21 01/06/22 08/30/21 16:00 mcg (1,000 unit) capsule ibuprofen 200 mg capsule 200 - 400 mg PO Q6H PRN Pain 08/02/21 01/06/22 Unknown omeprazole 20 mg tablet,delayed 20 mg PO QAM 08/02/21 01/06/22 08/31/21 07:00 release tramadol 50 mg tablet 50 mg PO Q6H PRN pain #30 tabs 09/01/21 01/06/22 Unknown fluconazole 150 mg tablet 150 mg PO Q3D 2 doses #2 tabs 09/07/21 01/06/22 Unknown (Diflucan) cephalexin 500 mg capsule 500 mg PO TID #30 caps 09/16/21 01/06/22 Unknown doxycycline hyclate 100 mg capsule 100 mg PO BID #20 caps 09/23/21 01/06/22 Unknown nirmatrelvir 150 mg-ritonavir 100 See Rx Instructions PO .COMPLEX 10/08/21 01/06/22 Unknown mg tablets in a dose pack (EUA) #20 tabs (Paxlovid) solifenacin 10 mg tablet (Vesicare) 10 mg PO PM 01/06/22 01/06/22 Unknown Past Medical History Medical History Anxiety Asthma Mild-NO INHALERS Cardiac murmur ECHO from 08/2021 showed systolic anterior motion of the mitral leaflet with 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 Moderate MR. Moderate TR. Depression Gastritis Controlled History of COVID-19 September 07, 2021, tested at [facility], extreme fatigue, headache, cough, > all resolved Osteopenia Overactive bladder Vascular dementia Follows with [facility] Past Family History Family History Father Prostate cancer Myocardial infarction Grandmother (Paternal) Family history of diabetes mellitus Denies family history of Ovarian cancer Breast cancer Colorectal cancer Past Surgical History Surgical History H/O laminectomy anterior, C4-C6 > ROM WNL per pt History of cataract surgery R/L History of colonoscopy History of esophagogastroduodenoscopy (EGD) with dilation History of hip surgery Right Anterior Total Hip Arthroplasty History of tonsillectomy Social History Smoking Status: Never smoker tobacco type: cigarettes Do You Dip or Chew Tobacco: No Smoking End Date: 1963 Hx Alcohol Use: Yes Alcohol type: wine alcohol intake frequency: a few times a month Hx Substance Use: No substance use type: does not use Lab Results Anesthesia Preop Results Results Anesthesia Widget: WBC 5.01 K/ul (4.8-10.8) 12/14/21 Hgb 12.9 g/dl (12.0-16.0) 12/14/21 Hct 38.5 % (34.1-44.9) 12/14/21 Plt 236 K/uL (130-400) 12/14/21 Na 141 mmol/L (136-145) 12/14/21 K 4.6 mmol/L (3.5-5.1) 12/14/21 Cl 105 mmol/L (98-107) 12/14/21 CO2 30 mmol/L (21-32) 12/14/21 BUN 20 mg/dl (6-23) 12/14/21 Creat 0.94 mg/dl (0.6-1.2) 12/14/21 Glucose Level 75 mg/dl (70-99(Fasting)) 12/14/21 PT 10.9 Seconds (9.0-12.0) 12/14/21 PTT 25.4 Seconds (21.0-31.0) 12/14/21 INR 1.0 (0.9-1.1) 12/14/21 Testing Laboratory Results Blood Type B Positive 12/14/21 10:10 Antibody Screen NEGATIVE 12/14/21 10:10 Electrocardiogram Date: 08/04/21 NSR, rate 61 bpm Septal infarct, age undetermined Chest X-Ray Date: 08/04/21 FINDINGS: No lines and tubes are seen. The cardiomediastinal silhouette is normal. No airspace disease seen. Interstitial thickening is seen. No evidence of pleural effusion or pneumothorax. IMPRESSION: No acute chest disease. 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 Moderate MR. Moderate TR. Normal estimated RVSP 33mmHg.
[2022-01-10] MEDS ORDERED: PROPOFOL IV EMULSION 10 MG/ML 20 ML VIAL IV ONE (07:06)
[2022-01-10] MEDS ORDERED: MIDAZOLAM HCL 1 MG/ML 2ML VIAL ONE (07:06)
--- NOTE | 2022-01-10 08:12 | History & Physical Bridge Note ---
Date of Service January 10, 2022 History & Physical Bridge Note I have examined the patient, reviewed the History & Physical and in the interval since the performance of the History & Physical I have noted the following changes of clinical significance: no changes noted
[2022-01-10] MEDS ORDERED: fentaNYL citrate 100 MCG/2 ML VIAL IV PRN (08:17)
[2022-01-10] MEDS ORDERED: HYDROmorphone INJ 2 MG/ML SYR/VIAL IV PRN (08:17)
[2022-01-10] MEDS ORDERED: ATROPINE SULFATE 0.1 MG/ML 10ML SYR IV PRN (08:17)
[2022-01-10] MEDS ORDERED: ePHEDrine sulfate 50 MG/ML AMP IV PRN (08:17)
[2022-01-10] MEDS ORDERED: ONDANSETRON INJ 2 MG/ML 2 ML VIAL IV PRN ×2 (08:17→11:34)
[2022-01-10] MEDS ORDERED: ORTHO JOINT ANESTHETIC ONE (08:33)
--- NOTE | 2022-01-10 10:01 | Operative Report ---
PG Post Operative Report Pre & Post Diagnosis Operation Date: 01/10/22 08:50 Pre-Op Diagnosis: Degenerative Joint Disease Left Hip Post-Op Diagnosis: Degenerative Joint Disease Left Hip I identified the patient and participated in the time-out.: Yes Procedure Operation Date: 01/10/22 08:50 Actual Procedures p Left Anterior Total Hip Arthroplasty(Left) - Juno Willett DO Surgeon Juno Willett DO Saturator Tender Juno Bajwa PA-C Estimated Blood Loss 200 Findings Consistent with Post-Op Diagnosis Specimens Left femoral head Description of Procedure Implants used I used a ZimmerBiomet total hip arthroplasty system with a size 2 standard Avenir Complete stem, a 50 mm G7 cup with a 25mm screw, an E1 polyethylene liner , a 36 mm ceramic head with a -3.5 neck. Marlen arrived at the hospital for the above procedure. She was seen in the preoperative holding area and the operative extremity was identified and signed. She was given a spinal anesthetic, a preoperative antibiotic, and TXA. She was then taken back to the operating room and laid on the table in the supine position. She was given basic sedation. The operative leg was secured to a Puristst leg positioner. The hip was then prepped and draped in sterile fashion. A timeout was done and the patient and the operative extremity was properly identified. An anterior approach was used. Dissection was taken down through the fascia and the tensor muscle belly was retracted laterally and the rectus was retracted medially. The circumflex vessels were identified and ligated. The capsule was then incised and tagged for later repair. The femoral neck was then cut and the femoral head was removed. The acetabulum was exposed. Time was spent doing a complete circumferential labral release. Sequential reaming of the acetabulum up to a size 49 reamer was done. Final reamings were done under fluoroscopy to ensure appropriate version. A Biomet 50 mm G7 cup was then impacted into place. A single 25 mm screw was placed. The E1 polyethylene liner was then snapped into place. Surrounding soft tissues were then injected with 100 cc of an orthopedic pain control cocktail. The proximal femur was then exposed. Sequential broaching up to a size broach was done. Off that broach a size 36 head with a -3.5 neck was trialed. The hip was reduced and fluoroscopic images showed anatomic alignment of the implants in acceptable length. The broach was removed. The final size 2 standard offset Avenir Complete stem was then impacted into place. A ceramic 36 mm head with a -3.5 neck was then impacted onto the stem and the hip was reduced. Final fluoroscopic images showed anatomic alignment of the hip. The capsule was then closed with #1 Vicryl suture. A dilute betadyne lavage was then done for 3 minutes. The joint was then irrigated with normal saline solution. The fascia was closed with #1 PDS suture. Skin was closed with 2-0 Vicryl, vince, and a Silverlon dressing. She was then transferred to a hospital bed and taken to the post anesthesia care unit in stable condition. She tolerated the procedure well. Juno Bajwa PA-C, was present for the entire procedure. He was critical for patient positioning, prepping, draping, retraction exposure, wound closure and application of sterile dressing. I attest to the content of the Intraoperative Record and any orders documented therein. Any exceptions are noted below.
--- NOTE | 2022-01-10 11:05 | Fluoroscopy Report ---
FL hip LT 1V CLINICAL HISTORY: LEFT ANTERIOR FRANCESCO COMPARISON STUDY: Pelvis radiograph October 20, 2021. FLUOROSCOPY TIME: 23 seconds. FLUOROSCOPIC IMAGES: 2 FINDINGS: Fluoroscopy was provided during total left hip arthroplasty. Hardware is intact. Alignment is anatomic. There is an acetabular screw. No fracture is identified by fluoroscopy. Right hip arthro plasty is partially imaged. IMPRESSION: Fluoroscopy provided during total left hip arthroplasty. ACT 112: Negative or not required by law. Electronically signed by: Andrew Guerrero M.D. 01/10/2022 11:04 AM
[2022-01-10] MEDS ORDERED: TRIAMCINOLONE ACET 0.1% OINT 15 GM TUBE TOP PRN (11:34)
[2022-01-10] MEDS ORDERED: MAGNESIUM HYDROXIDE SUSP 30 ML UDC PO PRN (11:34)
[2022-01-10] MEDS ORDERED: HYDROmorphone INJ 0.5 MG/0.5 ML SYR IV PRN (11:34)
[2022-01-10] MEDS ORDERED: METOCLOPRAMIDE HCL INJ 5 MG/ML 2 ML VIAL IV PRN (11:34)
[2022-01-10] MEDS ORDERED: bisacodyL 10 MG SUPP PR PRN (11:34)
[2022-01-10] MEDS ORDERED: oxyCODONE HCL IR 5 MG TAB (IMMEDIATE RELEASE) PO PRN (11:34)
[2022-01-10] MEDS ORDERED: NALOXONE HCL 0.4 MG/1 ML VIAL/CARP IV PRN (11:34)
--- NOTE | 2022-01-10 11:44 | Anesthesiology Progress Note ---
Date of Service January 10, 2022 Anesthesia Post Procedure Vital Signs Vital Signs: Temp Pulse Pulse Resp BP Pulse Ox O2 Del Method 01/10/22 10:40 48 L 15 151/77 H 100 Oxymask 01/10/22 10:30 47 L 14 155/74 H 100 Oxymask 01/10/22 10:20 36.2 C L 50 L 14 125/77 99 Oxymask 01/10/22 07:04 36.6 C 57 L 20 138/83 98 Room Air O2 Flow Rate 01/10/22 10:40 3 01/10/22 10:30 5 01/10/22 10:20 5 01/10/22 07:04 Transfer of Care Handoff Completed per policy Notes Mental Status: alert / awake / arousable and participated in evaluation Patient Amnestic to Procedure: Yes Nausea / Vomiting: adequately controlled Pain: adequately controlled Airway Patency, RR, SpO2: stable & adequate BP & HR: stable & adequate Hydration State: stable & adequate Anesthetic Complications: no major complications apparent and Pt Satisfied with anesthetic care
--- NOTE | 2022-01-10 11:47 | XRay Report ---
XR hip 1V LT w pelvis CLINICAL HISTORY: IN PACU - A/P PELVIS and LATERAL HIP COMPARISON: Pelvis and hip radiographs October 20, 2021. FINDINGS: Alignment of the total left hip arthroplasty is anatomic. There is no periprosthetic fract ure or unexpected radiopaque foreign body. There are skin vince. Right hip arthroplasty is unremark able in appearance. Pelvic calcifications favor phleboliths. IMPRESSION: Expected findings following total left hip arthroplasty. ACT 112: Negative or not required by law. Electronically signed by: Andrew Guerrero M.D. 01/10/2022 11:45 AM
[2022-01-10] MEDS: SODIUM CHLORIDE 0.9% 1000ML 1,000 ML IV SCH ×2 (12:06→21:12)
[2022-01-10] MEDS: KETOROLAC TROMETHAMINE 15 MG/ML VIAL IV SCH ×3 (12:39→22:49)
[2022-01-10] MEDS: FLUCONAZOLE 50 MG TAB PO SCH ×2 (12:39→12:41)
[2022-01-10] MEDS: ACETAMINOPHEN 500 MG TAB PO SCH ×2 (13:29→21:06)
[2022-01-10] MEDS: ceFAZolin 2000MG 2,000 MG/15 ML SYR IV SCH (17:28)
[2022-01-10] MEDS ORDERED: traMADol HCL 50 MG TABLET PO PRN (17:42)
[2022-01-10] MEDS ORDERED: SOLIFENACIN SUCCINATE PO SCH (18:00)
[2022-01-10] MEDS ORDERED: SENNA 8.6 MG TAB PO SCH (21:00)
[2022-01-10] MEDS: ASPIRIN 81 MG ECTAB PO SCH (21:07)
[2022-01-10] MEDS: DOCUSATE SODIUM 100 MG CAP PO SCH (21:08)
[2022-01-11] MEDS: ceFAZolin 2000MG 2,000 MG/15 ML SYR IV SCH (00:23)
[2022-01-11] MEDS: ACETAMINOPHEN 500 MG TAB PO SCH (06:02)
[2022-01-11] MEDS: KETOROLAC TROMETHAMINE 15 MG/ML VIAL IV SCH (06:03)
--- NOTE | 2022-01-11 06:57 | Orthopedic Progress Note ---
Date of Service January 11, 2022 Assessment & Plan (1) Status post left hip replacement: Overall she is doing very well. She is having much pain in the left hip. She will be seen by physical therapy today for ambulation and range of motion exercises. She is on aspirin for DVT prophylaxis. She can be discharged home later today. She will follow-up with orthopedics in 2 weeks. Matthew Gee was seen and examined at bedside this morning. Overall she is doing very well. She is not having much pain in the left hip. She has been up and ambulating to the bathroom. She has no complaints.. Review of Systems All systems reviewed & are unremarkable except as noted in HPI & below. Physical Exam On physical examination of the left hip, the dressing is clean and dry. She is sitting comfortably in the chair. She has active dorsiflexion plantarflexion of her left ankle.. Results & Data Results & Data Laboratory Results . Diagnostic Findings Postoperative x-rays of the left hip show the prosthesis to be in anatomic alignment without any evidence of fracture, desiccation, or loosening. PG Care Time/CCT Total # of Minutes Spent Total Time Spent with Patient: Total time spent is greater than 50% in coordination of care (as documented) at patient's floor/unit and/or counseling patient: Coding Level of Care Code 46993 Post Operative Follow-Up Diagnoses Status post left hip replacement Z96.642
--- NOTE | 2022-01-11 06:58 | Discharge Summary ---
Date of Service January 11, 2022 Principal Diagnosis Same as "Discharge Diagnosis" noted below under Discharge Instructions. Discharge Exam On physical examination of the left hip, the dressing is clean and dry. She is sitting comfortably in the chair. She has active dorsiflexion plantarflexion of her left ankle.. Discharge Data Procedures Performed Operation Date: 01/10/22 08:50 Actual Procedures p Left Anterior Total Hip Arthroplasty(Left) - Juno Willett DO Ordered Studies 01/10/22 [place] hip LT 1V Routine Hospital Course (1) Status post left hip replacement: On January 10, 2022 Marlen arrived at [facility] and underwent a left hip replacement without complication. She had a spinal anesthetic. Postoperatively she was started on aspirin for DVT prophylaxis and transferred to the general orthopedic floors. Her hospital course was uneventful. On postop day #1, her vital signs were stable and her pain was well controlled. She was able to participate well with physical therapy doing ambulation and r ajay of motion exercises. She was then discharged home. She will follow-up orthopedics in 2 weeks. PG Care Time/CCT Total # of Minutes Spent Total Time Spent with Patient: Total time spent is greater than 50% in coordination of care (as documented) at patient's floor/unit and/or counseling patient: Discharge Plan Discharge Items Patient Disposition: Home - Home Health Services Reason For Visit: DJD Left Hip Discharge Diagnosis: Left hip replacement Activity: Per Instructions section Non-emergency contact: Surgeon Call non-emergency contact if: your wound has increased redness and your wound has increased drainage Follow-up/Referrals: Majo Guerrero MD [Primary Care Provider] - Diet: Regular Addtl Attending Provider Instructions: Activity and Therapy Recommendations: * If you are using [facility] then therapy will be provided at your home until they feel you have accomplished all of your goals. * If you are using [facility] then Physical Therapy will be provided until they feel you are ready to start Outpatient Physical Therapy. * If you are not using home therapy then Outpatient Physical Therapy should start about 3-5 days from your day of surgery. Therapy will last about 6-10 weeks * You were shown a series of exercises in the hospital. Do these exercises three times each day including the exercises you were shown in physical therapy. * Get up and walk several times each day.~ For the first four weeks, try not to stand or walk for more than one hour at a time. If you do stand or walk for more than one hour, you will not hurt anything, but your leg will likely swell.~~ * As you feel comfortable, you may change from the walker or crutches to a cane and~then to independent walking. Medications: * Narcotic You will likely be sent home from the hospital with a prescription for the narcotic pain medication that worked best throughout your stay. * Aspirin Most patients will be required to take Aspirin 81mg twice a day for 6 weeks after surgery. This is obtained [id number] and a prescription is not necessary. * Other medications may be prescribed for specific circumstances. If you have any questions, please call the office at . * Resume previous home medications unless otherwise instructed TEDs/Elastic Stockings: The white elastic stockings help limit swelling and prevent blood clots from forming in your legs. The more you wear them, the more they work. Wear them for six weeks. Dressing Care: Leave the Silverlon dressing in place for 7 days. After 7 days you may remove the dressing. If the incision is not draining then you may leave the vince open to air. If there is a little bit of drainage or if the vince are getting stuck on your clothing then cover the incision with a dry dressing. The vince will be removed at your 2 week follow-up appointment. Showering: You may shower with the Silverlon dressing in place. Do not let the shower spray hit the dressing directly. Pat the Silverlon dressing dry. If the dressing becomes wet underneath, then simply remove the dressing. Keep the incision dry until you are 7 days out from the day of surgery. After 7 days you may remove the Silverlon dressing and shower with the vince exposed. Let soapy water run over the vince and pat them dry. Do not scrub or soak the incision. Things To Watch For: * Drainage from the incision site that occurs more than one week after your surgery. * Increased redness at the incision site. * Fever above 102 degrees Fahrenheit. * Unusual chest pain or shortness of breath. * Call [facility] at with any of the above problems Follow-Up Visit: Follow-up with Dr. Willett's PA (Juno Bajwa) 2-3 weeks after your day of surgery. He will remove your vince and answer any questions. If you have any additional questions or concerns, Dr Willett is usually in the office at the same time and will be available An appointment was probably scheduled when you signed-up for surgery in the office. If you have any questions call Office Instructions: More detailed instructions as well as Frequently Asked Questions were provided in a folder by our office when you signed-up for surgery. Please review these instructions when you get home. If you have any further questions or concerns, please feel free to call the office at [phone] Pending Studies at Discharge: No Stand-Alone Forms: My [facility] Early[employer], Smoking Cessation Medications and DC Order Prescriptions: New aspirin 81 mg Tablet,Delayed Release (Dr/Ec) 81 mg PO BID 42 Days Qty: 84 0RF Continued sertraline 100 mg tablet 100 mg PO QAM Qty: 90 3RF fluconazole [Diflucan] 150 mg tablet 150 mg PO Q3D 0 Days Qty: 2 4RF Rx Instructions: Take tablet today, then repeat in 3 days. cephalexin 500 mg capsule 500 mg PO TID Qty: 30 0RF doxycycline hyclate 100 mg capsule 100 mg PO BID Qty: 20 0RF cholecalciferol (vitamin D3) 25 mcg (1,000 unit) capsule 25 mcg PO QPM triamcinolone acetonide 0.1 % ointment 1 applic topical BID PRN (Reason: itching) Qty: 15 1RF calcium carbonate-vitamin D3 [Calcium 600 with Vitamin D3] 600 mg(1,500mg) - 500 unit capsule 1 cap PO BID Qty: 60 0RF vitamin E 200 unit capsule 200 units PO QAM [id number] 500-400-667 mg-mg-unit capsule 1 cap PO QPM omega-3 fatty acids [Fish Oil Concentrate] 1,000 mg capsule 1,000 mg PO QAM multivitamin tablet 1 tab PO QAM omeprazole 20 mg tablet,delayed release (DR/EC) 20 mg PO QAM ibuprofen 200 mg Capsule 200 - 400 mg PO Q6H PRN (Reason: Pain) solifenacin [Vesicare] 10 mg tablet 10 mg PO PM tramadol 50 mg tablet 50 mg PO Q6H PRN (Reason: pain) Qty: 30 0RF Discharge Orders: Discharge Order (Routine); Ordered 01/11/22 Ordered By: Juno Willett Admission Data Admit Date/Time: 01/10/22 10:20 Attending Provider: Juno Willett Admit Provider: Juno Willett Primary Care Provider: Majo Guerrero
[2022-01-11] MEDS: DOCUSATE SODIUM 100 MG CAP PO SCH (08:00)
[2022-01-11] MEDS ORDERED: dexAMETHasone 4 MG TAB PO SCH (08:00)
[2022-01-11] MEDS: ASPIRIN 81 MG ECTAB PO SCH (08:02)
[2022-01-11] MEDS ORDERED: MULTIVITAMIN TAB PO SCH (09:00)
[2022-01-11] MEDS ORDERED: SERTRALINE HCL 100 MG TABLET PO SCH (09:00)
== END 2022-01-11 12:08 | disposition home health service (06) ==
LOC: ASU 06:41 → 3E 06:41